=== PATIENT | male | born 1995 | race Caucasian/White ===

== ENCOUNTER 2016-07-12 13:48 | Emergency (ER) | payer SELFPAY ==
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
--- NOTE | 2016-07-12 15:17 | ED ORDER SUMMARY ---
..... Patient: JERSON WHITNEY OrderSheet [facility] VisitID: [id number] [place] [address] 21y, M Registration Date/Time: 07/12/2016 ORDER SHEET Weight: 83.9 kg (stated) Allergies: None GENERAL ORDERS: Hand 3 or 4V Left Urgent (14:21 07/12/2016 HBivens A.R.N.P.) (Ack 14:26 RKaruga) (14:38 RKaruga) MEDICATION ORDERS: Hydrocodone-APAP PO 5/325 mg (NOW, HIGH ALERT MEDICATION) (15:32 07/12/2016 HBivens A.R.N.P.) (15:34 Ariadna Gamboa.N.) IV FLUIDS: ORDER SHEET NOTES: [Electronically signed by Jada AlvarezR.N.PNathalie (16:11 07/12/2016)] [Electronically signed by Kailey Horton R.N. (16:18 07/12/2016)] [Electronically signed by Kailey Horton R.N. (16:18 07/12/2016)] [Electronically locked/signed by Kailey Horton R.N. (16:18 07/12/2016)]
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
--- NOTE | 2016-07-12 15:17 | ED ORDER SUMMARY ---
..... Patient: JERSON WHITNEY OrderSheet [facility] VisitID: [id number] [place] [address] 21y, M Registration Date/Time: 07/12/2016 ORDER SHEET Weight: 83.9 kg (stated) Allergies: None GENERAL ORDERS: Hand 3 or 4V Left Urgent (14:21 07/12/2016 HBivens A.R.N.P.) (Ack 14:26 RKaruga) (14:38 RKaruga) MEDICATION ORDERS: Hydrocodone-APAP PO 5/325 mg (NOW, HIGH ALERT MEDICATION) (15:32 07/12/2016 HBivens A.R.N.P.) (15:34 Ariadna Gamboa.N.) IV FLUIDS: ORDER SHEET NOTES: [Electronically signed by Jada AlvarezR.N.PNathalie (16:11 07/12/2016)] [Electronically signed by Kailey Horton R.N. (16:18 07/12/2016)] [Electronically signed by Kailey Horton R.N. (16:18 07/12/2016)] [Electronically locked/signed by Kailey Horton R.N. (16:18 07/12/2016)]
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
--- NOTE | 2016-07-12 16:19 | ED MAR SUMMARY ---
..... Medication Administration Record [facility] [address] [place] [address] Patient: JERSON WHITNEY Visit ID: [id number] 21y, M Weight: 83.9 kg Height/Length: 72 in BMI: 25.1 ALLERGIES: None Given 15:34 07/12/2016 Kailey Horton R.N. Medication Administered: HYDROCODONE-APAP [PO] (HYDROCODONE-ACETAMINOPHEN), Dose: 1 tab 5/325 mg Tablets PO. Medication Ordered: Hydrocodone-APAP PO 5/325 mg (NOW, HIGH ALERT MEDICATION).
--- NOTE | 2016-07-12 16:19 | ED MED RECONCILIATION SUMMARY ---
Patient: JERSON WHITNEY Medication Reconciliation Report [facility] VisitID: [id number] [place] [address] 21y, M Registration Date/Time: 07/12/2016 Weight: 83.9 kg Height/Length: 72 in. BMI: 25.1 ALLERGIES: None The patient's Home Medications are listed below: NONE. The source(s) of the original Home Medication information: Not obtained. The following Medications were given to the patient in the Emergency Department: Hydrocodone-APAP [PO] PO 1 tab, administered: 07/12/2016 3:34:00 PM The following Medications were prescribed to the patient: Naproxen 500 mg tablets: take 1 orally every 12 hours as needed for pain. Dispense twenty (20). No refills. -- Jada Alvarez, Sirena.R.N.P. Bactroban 2% ointment: apply small amount to affected area three times daily for 5 days. Dispense twenty-two (22) grams. No refills. Substitution is permissible. -- Jada Alvarez, A.R.N.P.
--- NOTE | 2016-07-12 16:19 | ED MED RECONCILIATION SUMMARY ---
Patient: JERSON WHITNEY Medication Reconciliation Report [facility] VisitID: [id number] [place] [address] 21y, M Registration Date/Time: 07/12/2016 Weight: 83.9 kg Height/Length: 72 in. BMI: 25.1 ALLERGIES: None The patient's Home Medications are listed below: NONE. The source(s) of the original Home Medication information: Not obtained. The following Medications were given to the patient in the Emergency Department: Hydrocodone-APAP [PO] PO 1 tab, administered: 07/12/2016 3:34:00 PM The following Medications were prescribed to the patient: Naproxen 500 mg tablets: take 1 orally every 12 hours as needed for pain. Dispense twenty (20). No refills. -- Jada Alvarez, Sirena.R.N.P. Bactroban 2% ointment: apply small amount to affected area three times daily for 5 days. Dispense twenty-two (22) grams. No refills. Substitution is permissible. -- Jada Alvarez, A.R.N.P.
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
--- NOTE | 2016-07-12 16:19 | ED MAR SUMMARY ---
..... Medication Administration Record [facility] [address] [place] [address] Patient: JERSON WHITNEY Visit ID: [id number] 21y, M Weight: 83.9 kg Height/Length: 72 in BMI: 25.1 ALLERGIES: None Given 15:34 07/12/2016 Kailey Horton R.N. Medication Administered: HYDROCODONE-APAP [PO] (HYDROCODONE-ACETAMINOPHEN), Dose: 1 tab 5/325 mg Tablets PO. Medication Ordered: Hydrocodone-APAP PO 5/325 mg (NOW, HIGH ALERT MEDICATION).
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
== END 2016-07-12 15:38 | disposition home or self-care (01) ==
LOC: ED SRH 13:48
DX: T21.14XA Burn of first degree of lower back, initial encounter (principal); T21.15XA Burn of first degree of buttock, initial encounter; T22.152A Burn of first degree of left shoulder, initial encounter; T22.112A Burn of first degree of left forearm, initial encounter; S63.637A Sprain of interphalangeal joint of left little finger, initial encounter; W03.XXXA Other fall on same level due to collision with another person, initial encounter; X19.XXXA Contact with other heat and hot substances, initial encounter; Y93.89 Activity, other specified; Y99.9 Unspecified external cause status; Y92.89 Other specified places as the place of occurrence of the external cause

== ENCOUNTER 2016-12-10 16:49 | Emergency (ER) | payer SELFPAY ==
--- NOTE | 2016-12-10 17:28 | ED ORDER SUMMARY ---
..... Patient: JERSON WHITNEY OrderSheet [facility] VisitID: [id number] [place] [address] 21y, M Registration Date/Time: 12/10/2016 ORDER SHEET Weight: 83.9 kg (stated) Allergies: No Known Drug Allergy GENERAL ORDERS: GC/Chlamydia (Penis) (swab) Urgent (17:59 12/10/2016 Eleni Gamboa.N. verbal order read back to Jean Marie DOUGLAS) (18:00 MCchuckiek R.N.) - (Urethral HSV culture) (18:00 12/10/2016 Eleni Goldberg verbal order read back to Jean Marie DOUGLAS) (18:00 Eleni R.N.) MEDICATION ORDERS: Zithromax PO 1000 mg (NOW) (17:23 12/10/2016 Jean Marie DOUGLAS) (17:46 Eleni R.N.) Rocephin IM 500 mg (NOW) (17:23 12/10/2016 Jean Marie DOUGLAS) (17:49 Eleni R.N.) Acyclovir PO 800 mg (NOW) (17:24 12/10/2016 Jean Marie DOUGLAS) (17:47 Eleni R.N.) IV FLUIDS: ORDER SHEET NOTES: [Electronically signed by Matthieu Jon R.N. (23:01 12/10/2016)] [Electronically signed by Eliezer Veras MD (09:36 12/11/2016)] [Electronically locked/signed by Matthieu Jon R.N. (23:12/10/2016)]
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
--- NOTE | 2016-12-10 17:28 | ED ORDER SUMMARY ---
..... Patient: JERSON WHITNEY OrderSheet [facility] VisitID: [id number] [place] [address] 21y, M Registration Date/Time: 12/10/2016 ORDER SHEET Weight: 83.9 kg (stated) Allergies: No Known Drug Allergy GENERAL ORDERS: GC/Chlamydia (Penis) (swab) Urgent (17:59 12/10/2016 Eleni Gamboa.N. verbal order read back to Jean Marie DOUGLAS) (18:00 MCchuckiek R.N.) - (Urethral HSV culture) (18:00 12/10/2016 Eleni Goldberg verbal order read back to Jean Marie DOUGLAS) (18:00 Eleni R.N.) MEDICATION ORDERS: Zithromax PO 1000 mg (NOW) (17:23 12/10/2016 Jean Marie DOUGLAS) (17:46 Eleni R.N.) Rocephin IM 500 mg (NOW) (17:23 12/10/2016 Jean Marie DOUGLAS) (17:49 Eleni R.N.) Acyclovir PO 800 mg (NOW) (17:24 12/10/2016 Jean Marie DOUGLAS) (17:47 Eleni R.N.) IV FLUIDS: ORDER SHEET NOTES: [Electronically signed by Matthieu Jon R.N. (23:01 12/10/2016)] [Electronically signed by Eliezer Veras MD (09:36 12/11/2016)] [Electronically locked/signed by Matthieu Jon R.N. (23:12/10/2016)]
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
--- NOTE | 2016-12-11 09:36 | ED MAR SUMMARY ---
..... Medication Administration Record [facility] [address] [place] [address] Patient: JERSON WHITNEY Visit ID: [id number] 21y, M Weight: 83.9 kg Height/Length: 72 in BMI: 25.1 ALLERGIES: No Known Drug Allergy Given 17:46 12/10/2016 Matthieu Jon R.N. Medication Administered: ZITHROMAX [PO], Dose: 1000 mg Tablets PO. Medication Ordered: Zithromax PO 1000 mg (NOW). Given 17:47 12/10/2016 Matthieu Jon R.N. Medication Administered: ACYCLOVIR [PO], Dose: 800 mg Tablets PO. Medication Ordered: Acyclovir PO 800 mg (NOW). Given 17:49 12/10/2016 Matthieu Jon R.N. Medication Administered: ROCEPHIN [IM] (CEFTRIAXONE SODIUM), Dose: 500 mg IM. Medication Ordered: Rocephin IM 500 mg (NOW).
--- NOTE | 2016-12-11 09:36 | ED DISCHARGE INSTRUCTIONS ---
Patient: JERSON WHITNEY General Instructions [facility] VisitID: [id number] [address] [place] [address] 21y, M Registration Date/Time: 12/10/2016 Urethritis secondary to chlamydia; herpes genitalis involving the penis. INSTRUCTIONS Drink plenty of fluids. No sexual contact until released. ([facility] and Dr Almonte for acyclovir-herpes medication. Contact the 2 sexual partners so they can stop having sex and get checked for STD's.). Warnings: Further evaluation is necessary. GENERAL WARNINGS: Return or contact your physician immediately if your condition worsens or changes unexpectedly, if not improving as expected, or if other problems arise. Prescription Medications: Acyclovir 800 mg: Take 1 orally every 8 hours for 10 days. No refill. OTC Medications: Take acetaminophen (Tylenol, Datril, etc.) according to label instructions. Available over the counter. Motrin (available over the counter): take according to label instructions. Understanding of the discharge instructions verbalized by patient. Follow-up with: Adis Almonte MD, [facility], , [address] [facility] [address] [place] [address]; [facility], , , [address], [facility], [address] Follow up in five days. Call for the next available appointment. ADDITIONAL INFORMATION STD, Suspected [R/O Gc & Chlamydia: Culture Only] Your symptoms suggest that you may have a STD (sexually transmitted disease). The most common bacteria that cause STD's are chlamydia and gonorrhea. Both are highly contagious and are passed by sexual contact with an infected partner. Symptoms begin within 1-3 weeks after exposure. There is usually a discharge from the penis or vagina and burning during urination. Many women with this infection will have only mild symptoms or no symptoms at all early in the disease. Culture tests have been taken. These will show if you have an infection with chlamydia or gonorrhea. This infection can be treated and cured with antibiotic medication. Home Care: 1) Avoid sexual activity until you know that your test result is negative. 2) If a culture was done and it is positive: Both you and your sexual partner need to be treated, even if your partner has no symptoms. Contact your doctor or go to an urgent care clinic or the Public Health Department to be examined and treated. Avoid sexual activity until both you and your partner have completed all antibiotic medicine and told that you are no longer contagious. Learn about safe sex practices and use these in the future. The safest sex is with a partner who has tested negative and only has sex with you. Condoms offer protection from spreading some sexually transmitted diseases including gonorrhea, chlamydia and HIV, but are not a guarantee. 3) Learn about safe sex practices and use these in the future. The safest sex is with a partner who has tested negative and only has sex with you. Condoms offer protection from spreading some sexually transmitted diseases including Gonorrhea, Chlamydia and HIV, but are not a guarantee. Follow Up with your doctor or as advised by our staff. You may call us in three days for the results of your culture, or as directed. If your culture test is positive and you are treated, another culture should be taken 4-6 weeks after treatment to be sure the infection has cleared. Follow up with your doctor or the Public Health Department for complete STD screening, including HIV testing. For more information about STDs, contact the National STD Hotline: . Get Prompt Medical Attention if any of the following occur: -- Fever over 100.4 F (38.0 C) -- New or increasing lower abdominal pain or back pain -- Unexpected vaginal bleeding -- Weakness, dizziness or fainting -- Repeated vomiting -- Inability to urinate due to pain -- Rash or joint pain -- Painful open sores on the penis or around the outer vagina -- Enlarged painful lymph nodes (lumps) in the groin -- Testicle pain or scrotal swelling in men Acyclovir Oral tablet What is this medicine? ACYCLOVIR (ay SYE kloe veer) is an antiviral medicine. It is used to treat or prevent infections caused by certain kinds of viruses. Examples of these infections include herpes and shingles. This medicine will not cure herpes. How should I use this medicine? Take this medicine by mouth with a glass of water. Follow the directions on the prescription label. You can take it with or without food. Take your medicine at regular intervals. Do not take your medicine more often than directed. Take all of your medicine as directed even if you think your are better. Do not skip doses or stop your medicine early. Talk to your cleaning technician regarding the use of this medicine in children. While this drug may be prescribed for selected conditions, precautions do apply. What side effects may I notice from receiving this medicine? Side effects that you should report to your doctor or health resident care coordinator as soon as possible: allergic reactions like skin rash, itching or hives, swelling of the face, lips, or tongue chest pain confusion, hallucinations, tremor dark urine increased sensitivity to the sun redness, blistering, peeling or loosening of the skin, including inside the mouth seizures trouble passing urine or change in the amount of urine unusual bleeding or bruising, or pinpoint red spots on the skin unusually weak or tired yellowing of the eyes or skin Side effects that usually do not require medical attention (report to your doctor or health resident care coordinator if they continue or are bothersome): diarrhea fever headache nausea, vomiting stomach upset What may interact with this medicine? probenecid What if I miss a dose? If you miss a dose, take it as soon as you can. If it is almost time for your next dose, take only that dose. Do not take double or extra doses. Where should I keep my medicine? Keep out of the reach of children. Store at room temperature between 15 and 25 degrees C (59 and 77 degrees F). Throw away any unused medicine after the expiration date. What should I tell my health care provider before I take this medicine? They need to know if you have any of these conditions: kidney disease an unusual or allergic reaction to acyclovir, ganciclovir, valacyclovir, other medicines, foods, dyes, or preservatives or trying to get breast-feeding What should I watch for while using this medicine? Tell your doctor or health resident care coordinator if your symptoms do not improve. This medicine works best when started very early in the course of an infection. Begin treatment at the first signs of infection. Drink 6 to 8 glasses of water or fluids every day while you are taking this medicine. This will help prevent side effects. You can still pass chickenpox, shingles, or herpes to another person even while you are taking this medicine. Avoid contact with others as directed. Genital herpes is a sexually transmitted disease. Talk to your doctor about how to stop the spread of infection. You have been given the following additional information: STD, Suspected (Culture Only) Acyclovir Oral tablet (Electronically signed by Eliezer Veras MD 12/11/2016 9:36)
--- NOTE | 2016-12-11 09:36 | ED MAR SUMMARY ---
..... Medication Administration Record [facility] [address] [place] [address] Patient: JERSON WHITNEY Visit ID: [id number] 21y, M Weight: 83.9 kg Height/Length: 72 in BMI: 25.1 ALLERGIES: No Known Drug Allergy Given 17:46 12/10/2016 Matthieu Jon R.N. Medication Administered: ZITHROMAX [PO], Dose: 1000 mg Tablets PO. Medication Ordered: Zithromax PO 1000 mg (NOW). Given 17:47 12/10/2016 Matthieu Jon R.N. Medication Administered: ACYCLOVIR [PO], Dose: 800 mg Tablets PO. Medication Ordered: Acyclovir PO 800 mg (NOW). Given 17:49 12/10/2016 Matthieu Jon R.N. Medication Administered: ROCEPHIN [IM] (CEFTRIAXONE SODIUM), Dose: 500 mg IM. Medication Ordered: Rocephin IM 500 mg (NOW).
--- NOTE | 2016-12-11 09:36 | ED MED RECONCILIATION SUMMARY ---
Patient: JERSON WHITNEY Medication Reconciliation Report [facility] VisitID: [id number] [place] [address] 21y, M Registration Date/Time: 12/10/2016 Weight: 83.9 kg Height/Length: 72 in. BMI: 25.1 ALLERGIES: No Known Drug Allergy The patient's Home Medications are listed below: THE FOLLOWING MEDICATIONS NEED TO BE RECONCILED: Vitamin c Oral The source(s) of the original Home Medication information: Not obtained. The following Medications were given to the patient in the Emergency Department: Zithromax [PO] PO 1000 mg, administered: 12/10/2016 5:46:00 PM Acyclovir [PO] PO 800 mg, administered: 12/10/2016 5:47:00 PM Rocephin [IM] IM 500 mg, administered: 12/10/2016 5:49:00 PM The following Medications were prescribed to the patient: Take acetaminophen (Tylenol, Datril, etc.) according to label instructions. Available over the counter. -- Eliezer Veras MD Motrin (available over the counter): take according to label instructions. -- Eliezer Veras MD Acyclovir 800 mg: Take 1 orally every 8 hours for 10 days. No refill. -- Eliezer Veras MD
--- NOTE | 2016-12-11 09:36 | ED MED RECONCILIATION SUMMARY ---
Patient: JERSON WHITNEY Medication Reconciliation Report [facility] VisitID: [id number] [place] [address] 21y, M Registration Date/Time: 12/10/2016 Weight: 83.9 kg Height/Length: 72 in. BMI: 25.1 ALLERGIES: No Known Drug Allergy The patient's Home Medications are listed below: THE FOLLOWING MEDICATIONS NEED TO BE RECONCILED: Vitamin c Oral The source(s) of the original Home Medication information: Not obtained. The following Medications were given to the patient in the Emergency Department: Zithromax [PO] PO 1000 mg, administered: 12/10/2016 5:46:00 PM Acyclovir [PO] PO 800 mg, administered: 12/10/2016 5:47:00 PM Rocephin [IM] IM 500 mg, administered: 12/10/2016 5:49:00 PM The following Medications were prescribed to the patient: Take acetaminophen (Tylenol, Datril, etc.) according to label instructions. Available over the counter. -- Elieezr Veras MD Motrin (available over the counter): take according to label instructions. -- Eliezer Veras MD Acyclovir 800 mg: Take 1 orally every 8 hours for 10 days. No refill. -- Eliezer Veras MD
--- NOTE | 2016-12-11 09:36 | ED DISCHARGE INSTRUCTIONS ---
Patient: JERSON WHITNEY General Instructions [facility] VisitID: [id number] [address] [place] [address] 21y, M Registration Date/Time: 12/10/2016 Urethritis secondary to chlamydia; herpes genitalis involving the penis. INSTRUCTIONS Drink plenty of fluids. No sexual contact until released. ([facility] and Dr Almonte for acyclovir-herpes medication. Contact the 2 sexual partners so they can stop having sex and get checked for STD's.). Warnings: Further evaluation is necessary. GENERAL WARNINGS: Return or contact your physician immediately if your condition worsens or changes unexpectedly, if not improving as expected, or if other problems arise. Prescription Medications: Acyclovir 800 mg: Take 1 orally every 8 hours for 10 days. No refill. OTC Medications: Take acetaminophen (Tylenol, Datril, etc.) according to label instructions. Available over the counter. Motrin (available over the counter): take according to label instructions. Understanding of the discharge instructions verbalized by patient. Follow-up with: Adis Almonte MD, Family Practice, , [address] [facility] [address] [place] [address]; [facility] , , [address], [facility], [id number] Follow up in five days. Call for the next available appointment. ADDITIONAL INFORMATION STD, Suspected [R/O Gc & Chlamydia: Culture Only] Your symptoms suggest that you may have a STD (sexually transmitted disease). The most common bacteria that cause STD's are chlamydia and gonorrhea. Both are highly contagious and are passed by sexual contact with an infected partner. Symptoms begin within 1-3 weeks after exposure. There is usually a discharge from the penis or vagina and burning during urination. Many women with this infection will have only mild symptoms or no symptoms at all early in the disease. Culture tests have been taken. These will show if you have an infection with chlamydia or gonorrhea. This infection can be treated and cured with antibiotic medication. Home Care: 1) Avoid sexual activity until you know that your test result is negative. 2) If a culture was done and it is positive: Both you and your sexual partner need to be treated, even if your partner has no symptoms. Contact your doctor or go to an urgent care clinic or the Public Health Department to be examined and treated. Avoid sexual activity until both you and your partner have completed all antibiotic medicine and told that you are no longer contagious. Learn about safe sex practices and use these in the future. The safest sex is with a partner who has tested negative and only has sex with you. Condoms offer protection from spreading some sexually transmitted diseases including gonorrhea, chlamydia and HIV, but are not a guarantee. 3) Learn about safe sex practices and use these in the future. The safest sex is with a partner who has tested negative and only has sex with you. Condoms offer protection from spreading some sexually transmitted diseases including Gonorrhea, Chlamydia and HIV, but are not a guarantee. Follow Up with your doctor or as advised by our staff. You may call us in three days for the results of your culture, or as directed. If your culture test is positive and you are treated, another culture should be taken 4-6 weeks after treatment to be sure the infection has cleared. Follow up with your doctor or the Public Health Department for complete STD screening, including HIV testing. For more information about STDs, contact the National STD Hotline: . Get Prompt Medical Attention if any of the following occur: -- Fever over 100.4 F (38.0 C) -- New or increasing lower abdominal pain or back pain -- Unexpected vaginal bleeding -- Weakness, dizziness or fainting -- Repeated vomiting -- Inability to urinate due to pain -- Rash or joint pain -- Painful open sores on the penis or around the outer vagina -- Enlarged painful lymph nodes (lumps) in the groin -- Testicle pain or scrotal swelling in men Acyclovir Oral tablet What is this medicine? ACYCLOVIR (ay SYE kloe veer) is an antiviral medicine. It is used to treat or prevent infections caused by certain kinds of viruses. Examples of these infections include herpes and shingles. This medicine will not cure herpes. How should I use this medicine? Take this medicine by mouth with a glass of water. Follow the directions on the prescription label. You can take it with or without food. Take your medicine at regular intervals. Do not take your medicine more often than directed. Take all of your medicine as directed even if you think your are better. Do not skip doses or stop your medicine early. Talk to your front loader residential driver regarding the use of this medicine in children. While this drug may be prescribed for selected conditions, precautions do apply. What side effects may I notice from receiving this medicine? Side effects that you should report to your doctor or health rn critical care as soon as possible: allergic reactions like skin rash, itching or hives, swelling of the face, lips, or tongue chest pain confusion, hallucinations, tremor dark urine increased sensitivity to the sun redness, blistering, peeling or loosening of the skin, including inside the mouth seizures trouble passing urine or change in the amount of urine unusual bleeding or bruising, or pinpoint red spots on the skin unusually weak or tired yellowing of the eyes or skin Side effects that usually do not require medical attention (report to your doctor or health rn critical care if they continue or are bothersome): diarrhea fever headache nausea, vomiting stomach upset What may interact with this medicine? probenecid What if I miss a dose? If you miss a dose, take it as soon as you can. If it is almost time for your next dose, take only that dose. Do not take double or extra doses. Where should I keep my medicine? Keep out of the reach of children. Store at room temperature between 15 and 25 degrees C (59 and 77 degrees F). Throw away any unused medicine after the expiration date. What should I tell my health care provider before I take this medicine? They need to know if you have any of these conditions: kidney disease an unusual or allergic reaction to acyclovir, ganciclovir, valacyclovir, other medicines, foods, dyes, or preservatives or trying to get breast-feeding What should I watch for while using this medicine? Tell your doctor or health rn critical care if your symptoms do not improve. This medicine works best when started very early in the course of an infection. Begin treatment at the first signs of infection. Drink 6 to 8 glasses of water or fluids every day while you are taking this medicine. This will help prevent side effects. You can still pass chickenpox, shingles, or herpes to another person even while you are taking this medicine. Avoid contact with others as directed. Genital herpes is a sexually transmitted disease. Talk to your doctor about how to stop the spread of infection. You have been given the following additional information: STD, Suspected (Culture Only) Acyclovir Oral tablet (Electronically signed by Eliezer Veras MD 12/11/2016 9:36)
== END 2016-12-10 17:55 | disposition home or self-care (01) ==
LOC: ED SRH 16:49
DX: A56.01 Chlamydial cystitis and urethritis (principal); A60.01 Herpesviral infection of penis; F17.210 Nicotine dependence, cigarettes, uncomplicated
CPT/HCPCS: 91227; 91228